=== PATIENT | female | born 1960 | race African-American/Black ===

== ENCOUNTER 2016-08-27 19:44 | Emergency (ER) | payer MEDICAID ==
[2016-08-27 22:51] VITALS: BP 130/67
== END 2016-08-27 22:51 | disposition home or self-care (01) ==
LOC: ED 19:44
DX: B34.9 Viral infection, unspecified (principal); I10 Essential (primary) hypertension

== ENCOUNTER 2016-11-12 12:01 | Emergency (ER) | payer OTHER ==
[2016-11-12 16:57] VITALS: BP 132/85
== END 2016-11-12 16:57 | disposition home or self-care (01) ==
LOC: ED 12:01
DX: M54.9 Dorsalgia, unspecified (principal); I10 Essential (primary) hypertension; Z76.0 Encounter for issue of repeat prescription

== ENCOUNTER 2018-06-26 08:47 | Emergency (ER) | payer MEDICAID ==
[~2018-06-26] VITALS: Ht 165.1 cm; Wt 70.8 kg
[2018-06-26 08:48] VITALS: Ht 165.1 cm; Wt 70.8 kg
[2018-06-26 11:01] VITALS: BP 116/78
== END 2018-06-26 11:02 | disposition home or self-care (01) ==
LOC: ED 08:47
DX: J30.9 Allergic rhinitis, unspecified (principal); I10 Essential (primary) hypertension; R51 Headache
CPT/HCPCS: Q0092

== ENCOUNTER 2018-12-01 07:23 | Emergency (ER) | payer OTHER ==
[~2018-12-01] VITALS: Ht 165.1 cm; Wt 71.2 kg
[2018-12-01 07:35] VITALS: BP 141/74; Ht 165.1 cm; Wt 71.2 kg
== END 2018-12-01 09:05 | disposition home or self-care (01) ==
LOC: ED 07:23
DX: S83.92XA Sprain of unspecified site of left knee, initial encounter (principal); I10 Essential (primary) hypertension; W18.30XA Fall on same level, unspecified, initial encounter; Y93.89 Activity, other specified; Y92.89 Other specified places as the place of occurrence of the external cause; Y99.8 Other external cause status
CPT/HCPCS: J1885; Q0092

== ENCOUNTER 2020-06-29 16:37 | Emergency (ER) | payer OTHER ==
[~2020-06-29] VITALS: Ht 165.1 cm; Wt 71.7 kg
[2020-06-29 17:06] VITALS: Ht 165.1 cm; Wt 71.7 kg
[2020-06-29 18:38] VITALS: BP 135/70
== END 2020-06-29 18:38 | disposition home or self-care (01) ==
LOC: ED 16:37
DX: S86.911A Strain of unspecified muscle(s) and tendon(s) at lower leg level, right leg, initial encounter (principal); M54.2 Cervicalgia; I10 Essential (primary) hypertension; X58.XXXA Exposure to other specified factors, initial encounter; Y93.89 Activity, other specified; Y92.89 Other specified places as the place of occurrence of the external cause; Y99.8 Other external cause status
CPT/HCPCS: J1885